=== PATIENT | male | born 1970 | race Caucasian/White ===

== ENCOUNTER 2023-04-26 02:28 | Inpatient (IN) | payer MEDICAID, SELFPAY ==
[2023-04-26] VITALS (45 sets, daily range): BP systolic 113–148; BP diastolic 86–109; PULSE 60–87; RESP 9–25; TEMP 36.6–37.6; O2SAT 90–100; BMI 28.2
--- NOTE | 2023-04-26 02:29 | XRR_ITS ---
PROCEDURE INFORMATION: Exam: XR Chest Exam date and time: 04/26/2023 2:34 AM Age: 53 years old Clinical indication: Pain and abnormal findings; Abnormal ekg; Chest pressure; Patient HX: C/O chest pain. St elevation on ekg. ; Additional info: Cp TECHNIQUE: Imaging protocol: Radiologic exam of the chest. Views: 1 view. COMPARISON: No relevant prior studies available. FINDINGS: Tubes, catheters and devices: Left chest defibrillator pads. Lungs: Krys-ef-upxzwacy diffuse interstitial hazy opacity. Pleural spaces: Unremarkable. No pleural effusion. No pneumothorax. Heart/Mediastinum: Heart is mildly enlarged. Advanced diffuse vascular calcification noted. Bones/joints: Unremarkable. XR/XR chest 1V portable [id number] IMPRESSION: Large heart with diffuse areas of interstitial edema, scarring, or pneumonitis.
--- NOTE | 2023-04-26 02:29 | ECG_ITS ---
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 Measurements Intervals [place] Rate: 80 P: 7 PA: 153 QRS: -28 QRSD: 99 T: 52 QT: 377 QTc: 437 Interpretive Statements SINUS RHYTHM WITH FREQUENT VENTRICULAR PREMATURE COMPLEXES LOW QRS VOLTAGE [QRS DEFLECTION < 0.5/1.0 mV IN LIMB/CHEST LEADS] ANTEROSEPTAL MYOCARDIAL INFARCTION , POSSIBLY ACUTE [40+ ms Q WAVE IN V1-V4] MARKED ST ELEVATION, CONSIDER LATERAL INJURY [MARKED ST ELEVATION W/O NORMALLY INFLECTED T-WAVE IN I/aVL/V5/V6] ST ELEVATION, CONSIDER INFERIOR INJURY [MARKED ST ELEVATION W/O NORMALLY INFLECTED T-WAVE IN II/aVF] ACUTE TN No previous ECG available for comparison Electronically Signed On 04-26-2023 22:31:07 CDT by Omar Bridges M.D. [id number]
--- NOTE | 2023-04-26 02:39 | XACV_ITS ---
Exam Room: 2 Ht: 188 cm Wt: 100 kg BSA: 2.30 m2 Gender: Male : 1970 Any Known Allergies: No known allergies Exam Priority: Routine Procedure(s): Procedure Description: Diagnostic procedure Procedure Description: PCI procedure Procedure Description: Left Heart Catheterization Procedure Description: Left ventriculography Procedure Description: Drug Eluting Coronary Stent Procedure Description: PTCA Procedure Description: Miscellaneous Procedure Description: ACT Procedure Description: Coronary Angiography Diagnostic Cath Status: Emergency Diagnostic Findings * Timeout performed using 2 patient identifiers. Moderate conscious sedation administered with one-on-one nursing monitoring of patient's conscious respiratory hemodynamic state including use of CO2 capnography. * Right radial access obtained with 6 Tunisian introducer without issue. * TIG 4 diagnostic catheter utilized. LV angiography revealed anteroapical and inferoapical severe hypokinesis. Basal segments were hypercontractile. Ejection fraction visually estimated at 35%. * Left main with 10 to 20% plaquing. * LAD in the mid segment was 100% occluded. Diagonal branch #1 is large with 10 to 20% plaquing. * Circumflex in the mid segment had 30 to 40% disease. Obtuse marginal branch #1 is large and had proximal 60% disease. * Right coronary artery in the midsegment had 50% disease. Distally there was 70% disease. Right coronary artery was codominant with a wraparound apical LAD. R JEANNE system was robust. PCI Status: Emergency Interventional Findings * LAD was wired without difficulty. CEM I flow was restored after dottoring with a 2.0 diameter balloon. Intracoronary adenosine was administered. Balloon angioplasty performed with a 2.0 x 15 mm balloon restoring CEM-3 flow. Mid LAD had 40 to 50% disease. Proximal LAD was stented using a 3.5 x 18 mm drug-eluting stent. There was less than 10% residual stenosis in the stented segment and 40 to 50% just distal to the stented segment. CEM-3 flow was present at the end of the procedure. Conclusions 1. Ejection fraction 35% with anteroapical and inferoapical severe hypokinesis. 2. Left main 10 to 20%. 3. Proximal LAD 100%. Successful intervention using a 3.5 x 18 mm drug-eluting stent. Mid LAD with 40 to 50%. 4. Circumflex marginal branch #1 with proximal 60%. 5. Right coronary artery mid 40 to 50% and distal 70%. Right coronary is a codominant system and gives rise to a large JEANNE. Recommendations * Aspirin, clopidogrel, carvedilol, Entresto, atorvastatin, as needed sublingual nitroglycerin. 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 Patient will be monitored for post AR complications in-house for 2 midnights. Ventriculography Ejection Fraction: 35.0 % Pressures Phase:Rest AO : 135 / 83 ( 115 ) @ 11:13:12 PM 119 / 77 ( 102 ) @ 11:13:12 PM 137 / 90 ( 114 ) @ 11:13:12 PM 146 / 95 ( 118 ) @ 11:13:12 PM LV : 141 / 18 / 30 @ 11:13:12 PM 158 / 11 / 44 @ 11:13:12 PM Clinical Evaluation EBL: 5mL-10mL Procedural Details Pre-Procedure Time Out. Identified patient by full name and date of as verbalized by the patient/guarantor. Does the consent match the physician's order: N/A Emergent; Informed Consent not obtained due to time critical life threat. Accurate & Complete Informed Consent: N/A Emergent; Informed Consent not obtained due to time critical life threat. Inpatient/Outpatient History & Physical on Chart: N/A Emergent; Informed Consent not obtained due to time critical life threat. If H&P is completed, is and addenduem needed: N/A Emergent; Informed Consent not obtained due to time critical life threat; If yes, is the addendum complete: N/A. Visualize and Verify Site with Patient/Guarantor: N/A. Relevant Radiology Images available: No. The risks, benefits, and alternatives of sedation and/or procedure were discussed by physician. The patient agrees to continue. Procedure started. Information Technology Project Manager Indications: ACS <= 24 hours. Correct patient, site and procedure confirmed by cath team. Current diagnosis: STEMI. PERRLA. Strong, equal hand fermenter champagne bilaterally. Lungs clear x 5 lobes. IV Site on Arrival: 18 gauge in the left hand. IV Site on Arrival: 20 gauge in the left anticubital. IV Fluids: 0.9% NaCl at KVO. 500 mL infused prior to veterinarian laboratory animal care. Pre Procedural Pulses: right radial was 2+. Pre Procedural Pulses: bilateral dorsalis pedis was 2+. Oxygen started at 3liters/min via nasal canula. right radial was prepped with chloroprep then draped in the usual sterile fashion. right groin was prepped with chloroprep then draped in the usual sterile fashion. Physician notified. Baseline sample Acquired. HR: 46 BPM. Cardiovascular Instability: Yes, if yes, Ventricular Arrhythmias. Baseline sample Acquired. HR: 69 BPM. Physician arrived. Physician scrubbed in. Immediate Pre-Procedure Time Out. Correct Patient: Yes; Correct Procedure: Yes; Correct Site: Yes; Correct Patient Position: Yes; Correct Supplies: Yes; Dried Flammable Prep: Yes; Blood Products Available: No;. Lidocaine 1% infiltrated to the right radial. Arterial access obtained. Wire out. EDP Sample taken: LV 141/18,30; HR: 100 BPM; SpO2: 99%. LV gram performed in NEUMANN @ 10 mL/second for a total of 30 mL. EDP Sample taken: LV 158/11,44; HR: 91 BPM; SpO2: 96%. Pullback taken: LV Off; AO Off; Mean: , Peak to Peak: , SEP: ; HR: 74 BPM; SpO2: 93%. A 5 [place] citizen TIG catheter in over wire. Multiple views taken of left coronary artery. Catheter redirected to the RCA. Multiple views taken of right coronary artery. Admit Source: Emergency department. Catheter removed over the exchange wire. 6 [place] citizen XB 3.5 guide catheter was inserted over the wire. Runthrough guidewire was advanced through the guide catheter to lesion in the prox LAD. Guidewire advanced across lesion. Balloon inserted to lesion in the prox LAD. Inflation number : 1 A AB MINI TREK 2.00X20 RX BALLOON was prepped and advanced across the Prox LAD , then inflated to 9 KELLEN for 0:18 seconds. Inflation number: 2 The AB MINI TREK 2.00X20 RX BALLOON was reinflated across the Prox LAD, to 9 KELLEN for 0:11 seconds. Balloon out. Stent balloon out over wire. Inflation Number : 3 A GABRIELLE Noble BARRY 3.5X22 SEGUNDO -Lot Number#[id number] EXP 12-26-2023 was prepped and advanced across the Prox LAD. The stent was deployed at 13 KELLEN for 0:34 seconds. Inflation number: 4 The stent balloon was then re-inflated across the Prox LAD to 13 KELLEN for 0:31 seconds. Angiography performed, checking results. Stent balloon and wire out. Guide catheter out over exchange wire. A 5 [place] citizen JR4 catheter in over wire. Multiple views taken of right coronary artery. Catheter removed over the exchange wire. ACT drawn. Results 215 seconds. Therapeutic limits - pre-heparin administration 90-150 seconds and monitoring heparin during a vascular procedure >250 seconds. Physician scrubbed out. Patient's family updated. Post Procedure: Pulses reassessed and unchanged. PERRLA. Strong, equal hand fermenter champagne bilaterally. No VTE prophylaxis required. Medication's Wasted: Lidocaine 1% = 2 mL. Medication's Wasted: Nitro = 49.6 mg. Medication's Wasted: Other = Fentanyl 75mcg mL. Medication's Wasted: Heparin = 4000 unit. Total IV fluids: 55 mL. Post-op diagnosis: Anterior AR. Complications: None. Estimated blood loss: 5mL-10mL. Responsiveness - Normal response to verbal stimuli; alert and oriented, PERRLA. Airway - Unaffected, no intervention required; spontaneous ventilation. Circulation: W/N/L, pulses unchanged. Nausea/Vomiting: No. Procedure completed. Patient transferred by wheelchair to ICU. Vital chart was stopped. A TR Band was successful obtaining hemostatsis at the Right Radial artery insertion site. Access Site Site: Right Radial artery Sheath Size: 6 Fr Hemostasis Method: TR Band Hemostasis Success: Successful Procedure Medications Start: 3:21 AM Stop: 3:21 AM Medication: Versed Amount: 1 mg Route: I.V. Start: 3:21 AM Stop: 3:21 AM Medication: Fentanyl Amount: 25 mcg Route: I.V. Start: 3:23 AM Stop: 3:23 AM Medication: Verapamil Amount: 2.5 mg Route: I.A. Start: 3:23 AM Stop: 3:23 AM Medication: Heparin Amount: 2000 units Route: I.A. Start: 3:23 AM Stop: 3:23 AM Medication: Nitrogylcerin Amount: 400 mcg Route: I.A. Start: 3:42 AM Stop: 3:42 AM Medication: Adenosine (Adenocard) Amount: 140 mcg Route: I.C. Start: 3:47 AM Stop: 3:47 AM Medication: Lasix (furosemide) Amount: 20 mg Route: I.V. Start: 3:48 AM Stop: 3:48 AM Medication: Versed Amount: 1 mg Route: I.V. I, the attending physician, have reviewed and verified all procedure medications. Yes, all medications given per verbal order Report Signatures Finalized by Sanjay Chinchilla MD on 04/26/2023 04:49 AM
--- NOTE | 2023-04-26 02:40 | ED_ITS ---
HPI - Chest Pain General: Chief Complaint: Chest Pain Stated Complaint: Chest Pains\SOB Time Seen by Provider: 04/26/23 02:29 Source: patient Mode of arrival: ambulatory Limitations: no limitations History of Present Illness: 53-year-old male states he has been having chest pain over the last 2 hours s tates the pain is a pressure type pain in the center of his chest and is severe he has had some diaphoresis and nausea with it as well. No history of heart disease in the past. He denies any worsening improving factors. Associated symptoms: Reports dyspnea; Deny abdominal pain, fever(s), nausea or vomiting Review of Systems Const: Denies: fever(s), chills, body aches or change in appetite Eyes: Denies: blurry vision or eye discomfort ENMT: Denies: throat pain or dental pain Card: Reports: chest pain Resp: Reports: dyspnea GI: Denies: abdominal pain, nausea, vomiting or diarrhea Musc: Denies: neck pain or back pain Skin/Breast: Denies: rash Neuro: Denies: headache(s) Physical Exam Const: COMMON NORMALS: patient oriented x3 GENERAL APPEARANCE: in distress HENMT: COMMON NORMALS: normocephalic and atraumatic HEAD & SCALP: normoceph alic and atraumatic Neck/C-Spine: COMMON NORMALS: full ROM and supple Chest: COMMONS NORMALS: normal inspection of the chest and normal palpation of entire chest wall Resp: COMMON NORMALS: normal respiratory effort, No retractions, No use of accessory muscles and clear to auscultation bilaterally AUSCULTATION: clear to auscultation bilaterally Cardio: COMMON NORMALS: regular rate, regular rhythm and No murmurs present (Cardio) RATE: regular rate RHYTHM: regular rhythm GI: COMMON NORMALS: Normal to inspection, nondistended, normoactive bowel so unds present, Soft to palpation, non-tender and no masses PALPATION: Yes Soft to palpation Extremity: COMMON NORMALS: normal to inspection and full ROM Neuro: COMMON NORMALS: patient oriented x3, moves all extremities and no focal motor deficits Psych: COMMON NORMALS: mental status grossly normal, Normal thought process present and cooperative THOUGHT PROCESS: Normal thought process present Skin: COMMON NORMALS: no rashes or lesions noted and no wounds GENERAL SKIN EXAM: no rashes or lesions noted Course Vital Signs: Vital signs: Vital Signs Temperature 98.2 F 04/26/23 02:33 Pulse Rate 74 04/26/23 03:01 Respiratory Rate 16 04/26/23 03:01 Blood Pressure 133/94 04/26/23 03:01 Pulse Oximetry 95 04/26/23 03:01 Oxygen Delivery Me thod Room Air 04/26/23 02:33 MDM - Chest Pain Medical Decision Making Patient presents here with chest pain EKG does show an ST elevation NC. I have spoken to health outcomes liaison will give heparin Plavix patient is going to go to the [facility] Medical Records I reviewed the patient's medical records. Lab Data I reviewed the patient's lab results. 04/26/23 02:45 04/26/23 02:45 Laboratory Results WBC 15.45 10^3/uL (3.29-11.43) H 04/26/23 02:45 RBC 4.94 10^6/uL (3.85-5.65) 04/26/23 02:45 Hgb 15.10 g/dL (11.27-16.99) 04/26/23 02:45 Hct 45.2 % (37-53) 04/26/23 02:45 MCV 91.5 fl (82-101) 04/26/23 02:45 MCH 30.6 pg (27-33) 04/26/23 02:45 MCHC 33.4 g/dL (30-55) 04/26/23 02:45 RDW 13.0 % (12.1-15.1) 04/26/23 02:45 Plt Count 266 10^3/cmm (157-399) 04/26/23 02:45 MPV 10.4 fL (7.4-10.4) 04/26/23 02:45 Neut % (Auto) 74.1 % 04/26/23 02:45 Lymph % (Auto) 17.7 % 04/26/23 02:45 [place] % (Auto) 6.0 % 04/26/23 02:45 Eos % (Auto) 1.4 % 04/26/23 02:45 Baso % (Auto) 0.3 % 04/26/23 02:45 Neut # (Auto) 11.44 10^3/uL (1.8-7.7) H 04/26/23 02:45 Lymph # (Auto) 2.7 10^3/uL (0.8-4.8) 04/26/23 02:45 [place] # (Auto) 0.9 10^3/uL (0.2-0.9) 04/26/23 02:45 Eos # (Auto) 0.2 10^3/uL (0.0-0.8) 04/26/23 02:45 Baso # (Auto) 0.1 10^3/uL (0.0-0.1) 04/26/23 02:45 Nucleated RBC % (auto) 0 % 04/26/23 02:45 Nucleated RBCs # 0.0 /100WBC 04/26/23 02:45 PT 11.70 SECONDS (12.1-14.9) L 04/26/23 02:45 INR 0.84 (0.8-1.2) 04/26/23 02:45 Troponin T Baseline 86 ng/L (0-15) H 04/26/23 02:45 EKG Data EKG 1: I personally reviewed and interpreted this EKG as follows: EKG interpretation date: 04/26/23 EKG interpretation time: 02:36 Interpretation: nsr hr 80 st elevation in inferior leads STEMI Critical Care Time Critical Care Time: Critical Care Time: Yes Total Critical Care Time: 35 Attestation: The high probability of a clinically significant, sudden or life threatening deterioration of the patient's cv system(s) required my full and direct attention, intervention and personal management. The critical care time is as shown. This time is in addition to time spent performing any reported procedures but includes the following: [x] Data and vital sign review and interpretation [x] Patient assessment, examination and intervention [x] Documentation [x] Medication orders and management Discharge Plan Discharge Patient Disposition: Admitted As Inpatient Clinical Impression: ST elevation (STEMI) myocardial infarction Condition: Stable Coding Level of Care Code ED Command Center Analyst for Patsy Guevara
[2023-04-26] MEDS: heparin 5,000 unit/mL INJ 1 mL 4000 UNIT IVP (02:42)
[2023-04-26] MEDS: clopidogrel 300 mg Tablet 600 MG PO (02:42)
[2023-04-26] MEDS: aspirin 325 mg Tablet PO (02:42)
[2023-04-26] MEDS: morphine 4 mg/mL SDV 1 mL IVP ×3 (02:45→12:57)
[2023-04-26] MEDS: nitroglycerin 0.4 mg sublingual Tablet SUBLINGUAL (02:47)
[2023-04-26] MEDS: sodium chloride 0.9% 1,000 ML 999 ML IV (02:48)
[2023-04-26] MEDS: ondansetron 2 mg/ML SDV 2 mL 4 MG IVP (02:51)
[2023-04-26 02:54] LABS: Basophils # 0.1 10^3/uL (0.0-0.1); Basophils % 0.3 %; Eosinophils # 0.2 10^3/uL (0.0-0.8); Eosinophils % 1.4 %; Hematocrit 45.2 % (37-53); Lymphocytes # 2.7 10^3/uL (0.8-4.8); Lymphocytes % 17.7 %; Mean Corpuscular HGB Conc 33.4 g/dL (30-55); Mean Corpuscular Hemoglobin 30.6 pg (27-33); Mean Corpuscular Volume 91.5 fl (82-101); Mean Platelet Volume 10.4 fL (7.4-10.4); Monocytes # 0.9 10^3/uL (0.2-0.9); Neutrophils # 11.44 10^3/uL (1.8-7.7); Neutrophils % 74.1 %; Nucleated Red Blood Cells % 0 %; Platelet Count 266 10^3/cmm (157-399); Red Blood Count 4.94 10^6/uL (3.85-5.65); White Blood Count 15.45 10^3/uL (3.29-11.43)
[2023-04-26 03:06] LABS: INR 0.84 (0.8-1.2)
[2023-04-26 03:10] LABS: Troponin(5th) Baseline 86 ng/L (0-15)
[2023-04-26 03:13] LABS: Alanine Aminotransferase 17 U/L (0-41); Albumin Level 4.6 g/dL (3.5-5.2); Alkaline Phosphatase 88 U/L (40-130); Anion Gap 15.1 (5-19); Aspartate Amino Transferase 15 U/L (0-40); Blood Urea Nitrogen 12 mg/dL (6-20); Calcium 9.7 mg/dL (8.5-10.5); Carbon Dioxide 28 mmol/L (22-29); Chloride 101 mmol/L (98-107); Globulin 2.6 g/dL (1.3-4.6); Glomerular Filtration Rate 88.3 mL/min (90-130); Glucose 198 mg/dL (65-115); Lipase 23 U/L (13-60); Osmolality Calculated 295 mOsm/kg (285-295); Potassium 4.1 mmol/L (3.5-5.1); Sodium 140 mmol/L (136-145); Total Bilirubin 0.2 mg/dL (0.15-1.2); Total Protein 7.2 g/dL (6.6-8.7)
--- NOTE | 2023-04-26 03:13 | PC.NURSE ---
Pt brought to ED via personal vehicle with SO and daughter. Pt stated that chest pain began around 0000 as SOB and pressure. Pt was asleep on the couch at this time and woke up to these s/s and tried to go to bed. Daughter arrived home at 0100 and pt stated that chest pain was worsening. Pain is in the substernal region and feels like pressure. Pt was diaphoretic per family as well. No cardiac hx. Upon arrival to ED, EKG obtained at [address] elevation. in room at time of EKG. STEMI alert called at this time. Monitoring and pads placed on pt. IVs then established prior to medications given. Exact times of these recorded on mechanical shop laborer flowsheet. Medications then given at documented times in OCT. Pt dressed out into only gown with groin and wrist sites shaved with razor. Pt pain under control at time of departure to mechanical shop laborer at 0310. Pain was a 4/10 per pt. Report given to mechanical shop laborer RN. Cook Pressure not present before departure to mechanical shop laborer.
--- NOTE | 2023-04-26 04:02 | P.HP_ITS ---
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 2 hours prior to presentation to the ER he developed severe chest discomfort, diaphoresis, and shortness of breath. EKG was consistent with an acute PA. Review of Systems Narrative: 10 point review of systems performed. Negative for all other complaints except for those noted in history of present illness Medications/Allergies Home Medications Medication Instructions Recorded Confirmed Last Taken Type No Known Home Medications 09/08/22 Unknown History Allergies Allergy/AdvReac Type Severity Reaction Status Date / Time No Known Allergies Allergy Verified 04/26/23 02:43 Vitals/I&O/Wt Last Vital Signs Temp 98.2 F 04/26/23 02:33 Pulse 73 04/26/23 03:05 Resp 18 04/26/23 03:05 BP 132/105 04/26/23 03:05 Pulse Ox 94 04/26/23 03:05 O2 Del Method Room Air 04/26/23 03:05 Weight last 48 hrs Weight 220 lb Physical Exam Const: COMMON NORMALS: average body habitus HENMT: COMMON NORMALS: normocephalic Eye: PUPIL: Yes Equal, round and reactive pupils present Neck/C-Spine: CERVICAL SPINE: Yes cervical ROM normal Chest: OTHER: Anterior exam only no audible rales rhonchi or wheezes Resp: AUSCULTATION: clear to auscultation bilaterally Cardio: HEART SOUNDS: S1 normal heart sound present and S2 normal heart sound present OTHER: Ectopy audible GI: PALPATION: Yes Soft to palpation Back/Pelvis: LUMBAR SPINE/LOWER BACK: Yes normal to inspection Extremity: GENERAL: Yes normal exam except as noted Psych: ATTITUDE: Yes agitated Skin: OTHER: Diaphoresis Data 04/26/23 02:45 04/26/23 02:45 A&P Assessment and plan (1) ST elevation (STEMI) myocardial infarction: (2) Cigarette nicotine dependence: (3) Hyperlipidemia: (4) Hypertension: Plan Patient is agreeable with recommendation to proceed directly with diagnostic cardiac cath and possible percutaneous revascularization. He and his family except the periprocedural 1 to 3% risk of bleeding infection stroke heart attack renal failure need for emergent surgery and . Based on results further recommendations will be made. Attestations Medical Necessity Statement*: Patient is presenting with an anterolateral myocardial infarction, acute, anticipate greater than 2 midnight stay. Coding Level of Care Code [address] elevation (STEMI) myocardial infarction I21.3 Cigarette nicotine dependence F17.210 Hyperlipidemia E78.5 Hypertension I10
[2023-04-26] MEDS: sodium chloride 0.9% 1,000 ML 100 ML IV (05:00)
[2023-04-26 05:57] LABS: Troponin 5 2HR 5826 ng/L (0-15)
[2023-04-26 05:58] LABS: Troponin 5 2HR Delta 5740 ABS# (0-10)
--- NOTE | 2023-04-26 06:19 | PC.NURSE ---
0415 -- Received patient from laboratory technical specialist via stretcher. Patient remains drowsy. V/S stable. CM = SR with frequent PVCs and runs of v-tach. No reports of chest pain or discomfort. TR band to right wrist in place with 18ml air in place.
--- NOTE | 2023-04-26 06:44 | PC.NURSE ---
0515 -- 3mL air removed from right radial TR band 0530 -- 3mL air removed from right radial TR band 0545-- 3mL air removed from right radial TR band 0600 -- 3mL air removed from right radial TR band 0615 -- 3mL air removed from right radial TR band 0630 -- 3mL air removed from right radial TR band. NO bleeding or hematoma noted. TR band removed, bandaid placed.
--- NOTE | 2023-04-26 06:48 | PC.NURSE ---
Small hematoma noted above insertion site to right wrist. Replaced TR band, inflated with 10mL air.
--- NOTE | 2023-04-26 08:29 | ECG_ITS ---
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 Measurements Intervals [place] Rate: 70 P: -9 WV: 139 QRS: -66 QRSD: 95 T: 42 QT: 409 QTc: 442 Interpretive Statements SINUS RHYTHM WITH OCCASIONAL VENTRICULAR PREMATURE COMPLEXES LEFT AXIS DEVIATION [QRS AXIS < -30] LOW QRS VOLTAGE [QRS DEFLECTION < 0.5/1.0 mV IN LIMB/CHEST LEADS] ANTEROSEPTAL MYOCARDIAL INFARCTION , OF INDETERMINATE AGE [40+ ms Q WAVE IN V1-V4] Compared to ECG 04/26/2023 02:36:31 Left-axis deviation now present ST (T wave) deviation no longer present Myocardial infarct finding still present Electronically Signed On 04-26-2023 22:33:24 CDT by Omar Bridges M.D. [id number]
[2023-04-26 09:12] LABS: Troponin 5 6HR 6943 ng/L (0-15)
[2023-04-26 09:13] LABS: Troponin 5 6HR Delta 6857 ng/L (0-12)
[2023-04-26] MEDS: aspirin 81 mg EC Tablet PO (09:41)
[2023-04-26] MEDS: carvedilol 3.125 mg Tablet PO ×2 (09:41→17:26)
[2023-04-26] MEDS: sacubitril/valsartan 24-26 mg Tablet 1 EACH PO ×2 (09:41→17:26)
[2023-04-26] MEDS: clopidogrel 75 mg Tablet PO (09:41)
--- NOTE | 2023-04-26 16:17 | P.PN_ITS ---
Subjective Subjective: Patient has no past medical history and underwent coronary intervention for management of an acute anterior myocardial infarction with a proximal to mid LAD 100% occlusion and placement of a 3.5 x 18 mm drug-eluting stent. There was samaritan of CEM-3 flow and the patient's symptoms instantaneously resolve he is sleeping and resting comfortably in the ICU in bed. Family is at the bedside his daughter is a nurse in the emergency room. Vitals/I&O/Wt Last Vital Signs Temp 98.2 F 04/26/23 04:38 Pulse 70 04/26/23 14:00 Resp 13 04/26/23 14:00 BP 136/102 04/26/23 14:00 Pulse Ox 97 04/26/23 13:30 O2 Del Method Nasal Cannula 04/26/23 06:00 04/26/23 04/26/23 04/26/23 06:59 14:59 22:59 Intake Total 200 / 200 Output Total 1200 / 1200 Balance -1000 / -1000 Weight last 48 hrs Weight 220 lb Physical Exam Const: COMMON NORMALS: average body habitus HENMT: COMMON NORMALS: normocephalic HEAD & SCALP: normocephalic Eye: COMMON NORMALS: Equal, round and reactive pupils present PUPIL: Yes E qual, round and reactive pupils present Neck/C-Spine: CERVICAL SPINE: Yes cervical ROM normal Chest: OTHER: Anterior exam only no audible rales rhonchi or wheezes Resp: COMMON NORMALS: clear to auscultation bilaterally AUSCULTATION: clear to auscultation bilaterally Cardio: COMMON NORMALS: S1 normal heart sound present and S2 normal heart sound present HEART SOUNDS: S1 normal heart sound present and S2 normal heart sound present OTHER: Ectopy audible GI: COMMON NORMALS: Soft to palpation PALPATION: Yes Soft to palpation Back/Pelvis: LUMBAR SPINE/LOWER BACK: Yes normal to inspection Extremity: GENERAL: Yes normal exam except as noted Psych: ATTITUDE: Yes agitated Skin: OTHER: Diaphoresis Data 04/26/23 02:45 04/26/23 02:45 A&P Assessment and plan (1) ST elevation (STEMI) myocardial infarction: (2) Cigarette nicotine dependence: (3) Hyperlipidemia: (4) Hypertension: (5) Ventricular tachycardia (paroxysmal): Patient continues to suffer from nonsustained ventricular tachycardia post revascularization for an acute anterior myocardial infarction. He remains high risk and will stay in the hospital overnight. I have discussed with him considerations for ZOLL LifeVest for risk reduction over the next 90 days and he and his family are thinking about things. Attestations Medical Necessity Statement*: Patient suffered an anterior myocardial infarction with LV systolic dysfunction and ventricular arrhythmias after revascularization. He is still undecided on a ZOLL LifeVest. He will remain in the intensive care unit overnight and he is expected to stay 2 midnights prior to discharge. Coding Level of Care Code [address] elevation (STEMI) myocardial infarction I21.3 Cigarette nicotine dependence F17.210 Hyperlipidemia E78.5 Hypertension I10 Ventricular tachycardia (paroxysmal) I47.29
[2023-04-26] MEDS: atorvastatin 40 mg Tablet 80 MG PO (20:29)
[2023-04-27] VITALS (22 sets, daily range): BP systolic 95–140; BP diastolic 70–104; PULSE 76–87; RESP 12–33; TEMP 37.1–37.2; O2SAT 90–98
[2023-04-27 04:17] LABS: Basophils % 0.3 %; Eosinophils % 0.3 %; Hematocrit 40.3 % (37-53); Lymphocytes # 2.8 10^3/uL (0.8-4.8); Lymphocytes % 20.7 %; Mean Corpuscular Hemoglobin 30.8 pg (27-33); Mean Corpuscular Volume 90.6 fl (82-101); Monocytes # 1.1 10^3/uL (0.2-0.9); Monocytes % 8.3 %; Neutrophils # 9.57 10^3/uL (1.8-7.7); Nucleated Red Blood Cells % 0 %; Platelet Count 216 10^3/cmm (157-399); Red Blood Count 4.45 10^6/uL (3.85-5.65); Red Cell Distribution Width 13.2 % (12.1-15.1); White Blood Count 13.66 10^3/uL (3.29-11.43)
[2023-04-27 04:36] LABS: Anion Gap 11.4 (5-19); Blood Urea Nitrogen 9 mg/dL (6-20); Calcium 8.9 mg/dL (8.5-10.5); Carbon Dioxide 27 mmol/L (22-29); Chloride 99 mmol/L (98-107); Glucose 148 mg/dL (65-115); Osmolality Calculated 277 mOsm/kg (285-295); Potassium 4.4 mmol/L (3.5-5.1); Sodium 133 mmol/L (136-145)
[2023-04-27 04:46] LABS: Troponin T (5th) Once 4535 ng/L (0-15)
[2023-04-27] MEDS: aspirin 81 mg EC Tablet PO (08:12)
[2023-04-27] MEDS: clopidogrel 75 mg Tablet PO (08:12)
[2023-04-27] MEDS: carvedilol 3.125 mg Tablet PO (08:12)
[2023-04-27] MEDS: sacubitril/valsartan 24-26 mg Tablet 1 EACH PO ×2 (08:12→17:03)
--- NOTE | 2023-04-27 09:14 | P.PN_ITS ---
Subjective Subjective: Patient is chest pain-free. Feels drowsy today. Blood pressure is controlled. Vitals/I&O/Wt Last Vital Signs Temp 98.8 F 04/27/23 04:00 Pulse 83 04/27/23 08:00 Resp 16 04/27/23 08:00 BP 131/104 04/27/23 08:00 Pulse Ox 94 04/27/23 08:00 O2 Del Method Room Air 04/27/23 06:00 04/26/23 04/27/23 04/27/23 22:59 06:59 14:59 Intake Total 200 / 200 Output Total 800 / 800 Balance 200 / 200 -800 / -600 Weight last 48 hrs Weight 222 lb 9.6 oz Weight 220 lb Physical Exam Narrative: GENERAL: Patient is alert, awake and oriented x3. [] NECK: No jugular vein distension. [] HEENT: No cyanosis. No icterus. No pallor. [] HEART: Regular S1 and S2. No murmur, rub or gallop. [] LUNGS: Diminished air entry bilaterally CENTRAL NERVOUS SYSTEM: Grossly nonfocal. [] EXTREMITIES: Lower extremities with no edema Data 04/27/23 03:40 04/27/23 03:40 A&P Assessment and plan (1) ST elevation (STEMI) myocardial infarction: (2) Ischemic cardiomyopathy: (3) Ventricular tachycardia (paroxysmal): (4) Hypertension: (5) Hyperlipidemia: (6) Cigarette nicotine dependence: Plan Patient had presented with ST elevation ID and underwent successful revascularization. His echo performed today shows severely reduced LV systolic function with EF of 30 to 35%. He also had ventricular tachycardia postprocedure that was nonsustained. We will proceed with ordering LifeVest. Continue dual antiplatelet therapy with aspirin and Plavix. We will uptitrate Coreg to 6.25 mg twice daily today. Continue ICU monitoring for today. Attestations Medical Necessity Statement*: Care expected to cross [address] elevation ID. Awaiting LifeVest Coding Level of Care Code Acute Code for [facility] Diagnoses ST elevation (STEMI) myocardial infarction I21.3 Ischemic cardiomyopathy I25.5 Ventricular tachycardia (paroxysmal) I47.29 Hypertension I10 Hyperlipidemia E78.5 Cigarette nicotine dependence F17.210
--- NOTE | 2023-04-27 11:03 | USCV_ITS ---
Yosef Mukesh Age: 53 Gender: M : 1970 Exam Date: 04/27/2023 12:33 Ordering Phys: Omar Bridges M.D ([email or web address]) Technologist: Braden Beaver Exam Location: [facility] [place] Indication: mi BP: 121 / 98 HR: Rhythm: Sinus Technical Quality: Adequate MEASUREMENTS (Male / Female) Normal Values 2D ECHO LV Diastolic Diameter PLAX 4.9 cm 4.2 - 5.9 / 3.9 - 5.3 cm IVS Diastolic Thickness 0.8 cm 0.6 - 1.0 / 0.6 - 0.9 cm LVPW Diastolic Thickness 1.1 cm 0.6 - 1.0 / 0.6 - 0.9 cm LVOT Diameter 2.1 cm LV Ejection Fraction MOD 2C 46.8 % LV Ejection Fraction 2C AL 47.0 % LA Diameter 3.3 cm M-MODE Aortic Annulus Diameter 3.6 cm LA Ao Ratio MM 1.0 MV E Point Septal Separation 1.1 cm DOPPLER AV Peak Velocity 93.0 cm/s LVOT Peak Velocity 93.0 cm/s AV Area Cont Eq vti 2.9 cm squared AV Area Cont Eq pk 3.4 cm squared MV Area PHT 4.0 cm squared Mitral E to A Ratio 0.7 MV E' Velocity 28.5 cm/s Mitral E to MV E' Ratio 14.3 Mitral E to LV E' Lateral Ratio 15.1 Mitral E to LV E' Septal Ratio 13.9 TR Peak Velocity 88.0 cm/s TR Peak Gradient 3.1 mmHg TV Peak E Velocity 66.0 cm/s Right Atrial Pressure 3.0 mmHg Pulmonary Artery Systolic Pressu 6.1 mmHg RV Acceleration Time 0.1 s FINDINGS Left Ventricle Left ventricle is normal size. LV systolic function is severely reduced with EF of 25 to 30%. Mid to apical anterior wall, apical wall, mid to apical inferoseptal lentz are severely hypokinetic. Grade 1 diastolic dysfunction Right Ventricle Normal in size and function Right Atrium Normal in size Left Atrium Normal in size Mitral Valve Grossly normal Aortic Valve Grossly normal. No significant stenosis or regurgitation. Tricuspid Valve Not well visualized Pulmonic Valve Not well visualized Pericardium Normal Aorta Normal in size IVC Not well visualized CONCLUSIONS LV systolic function is severely reduced with EF of 25 to 30%. Above-mentioned regional wall motion abnormalities. Grade 1 diastolic dysfunction No comparison studies are available. Omar Bridges MD (Electronically Signed) Final Date: 27 April 2023 17:31 S
[2023-04-27] MEDS: carvedilol 6.25 mg Tablet PO (17:03)
--- NOTE | 2023-04-27 18:53 | PC.NURSE ---
Shift summary: uneventful shift, patient decided to go with wearing a life vest, waiting on company at this time. no pain reported today, family been at bedside and updated.
[2023-04-27] MEDS: atorvastatin 40 mg Tablet 80 MG PO (20:54)
[2023-04-28] VITALS (15 sets, daily range): BP systolic 85–110; BP diastolic 64–84; PULSE 73–80; RESP 12–22; O2SAT 92–97
[2023-04-28] MEDS: aspirin 81 mg EC Tablet PO (08:01)
[2023-04-28] MEDS: clopidogrel 75 mg Tablet PO (08:01)
[2023-04-28] MEDS: carvedilol 6.25 mg Tablet PO (08:01)
[2023-04-28] MEDS: sacubitril/valsartan 24-26 mg Tablet 1 EACH PO (08:01)
[2023-04-28 09:23] LABS: Basophils # 0.1 10^3/uL (0.0-0.1); Basophils % 0.5 %; Eosinophils # 0.2 10^3/uL (0.0-0.8); Eosinophils % 1.3 %; Hematocrit 41.9 % (37-53); Lymphocytes # 2.8 10^3/uL (0.8-4.8); Lymphocytes % 21.2 %; Mean Corpuscular HGB Conc 34.1 g/dL (30-55); Mean Corpuscular Hemoglobin 30.7 pg (27-33); Mean Corpuscular Volume 89.9 fl (82-101); Mean Platelet Volume 10.3 fL (7.4-10.4); Monocytes # 1.3 10^3/uL (0.2-0.9); Monocytes % 9.9 %; Neutrophils # 8.68 10^3/uL (1.8-7.7); Neutrophils % 66.8 %; Nucleated Red Blood Cells % 0 %; Platelet Count 217 10^3/cmm (157-399); Red Blood Count 4.66 10^6/uL (3.85-5.65); Red Cell Distribution Width 13.1 % (12.1-15.1)
[2023-04-28 09:48] LABS: Anion Gap 12.2 (5-19); Blood Urea Nitrogen 12 mg/dL (6-20); Calcium 8.6 mg/dL (8.5-10.5); Carbon Dioxide 25 mmol/L (22-29); Chloride 102 mmol/L (98-107); Glucose 132 mg/dL (65-115); Osmolality Calculated 282 mOsm/kg (285-295); Potassium 4.2 mmol/L (3.5-5.1); Sodium 135 mmol/L (136-145)
--- NOTE | 2023-04-28 16:14 | PM.DCS ---
Discharge Providers Date of Admission: 04/26/23 04:36 Date of Discharge: April 28, 2023 Attending Provider at Admission: Sanjay Chinchilla MD Attending Provider at Discharge: Omar Bridges MD Diagnoses at Discharge Discharge Diagnosis (1) ST elevation (STEMI) myocardial infarction: Status: Inactive (2) Ischemic cardiomyopathy: Status: Acute (3) Ventricular tachycardia (paroxysmal): Status: Inactive (4) Hypertension: Status: Acute (5) Hyperlipidemia: Status: Acute (6) Cigarette nicotine dependence: Status: Inactive Reason for Visit Reason for Visit: Chest Pains\SOB Brief History: 53-year-old man who presented with chest pain, diaphoresis and shortness of breath was found to have ST elevation SC. Hospital Course Hospital Course Coronary angiogram demonstrated totally occluded proximally due to it underwent successful revascularization with 1 stent. Patient's LV systolic function is severely reduced. He had episodes of nonsustained VT. Tolerated medicines well. He was discharged home in a stable condition on dual antiplatelet therapy, Coreg and Entresto. LifeVest was also arranged for him.Patient has residual 70% distal RCA stenosis. We will perform outpatient stress test to see if needs revascularization. Physical Exam Narrative: GENERAL: Patient is alert, awake and oriented x3. [] NECK: No jugular vein distension. [] HEENT: No cyanosis. No icterus. No pallor. [] HEART: Regular S1 and S2. No murmur, rub or gallop. [] LUNGS: Diminished air entry bilaterally CENTRAL NERVOUS SYSTEM: Grossly nonfocal. [] EXTREMITIES: Lower extremities with no edema Discharge Data Studies Completed and Pending Completed Studies During Hospitalization Category Date Time Status RN TELEHEALTH request for service Stat Exams 04/26/23 02:39 Completed XR chest 1V portable [id number] Stat Exams 04/26/23 02:29 Completed CV. echo complete* [id number] Routine Ultrasound 04/27/23 11:03 Completed Radiology Impressions Chest X-Ray 04/26/23 02:29 IMPRESSION: Large heart with diffuse areas of interstitial edema, scarring, or pneumonitis. Laboratory Results WBC 13.00 10^3/uL (3.29-11.43) H 04/28/23 09:10 RBC 4.66 10^6/uL (3.85-5.65) 04/28/23 09:10 Hgb 14.30 g/dL (11.27-16.99) 04/28/23 09:10 Hct 41.9 % (37-53) 04/28/23 09:10 MCV 89.9 fl (82-101) 04/28/23 09:10 MCH 30.7 pg (27-33) 04/28/23 09:10 MCHC 34.1 g/dL (30-55) 04/28/23 09:10 RDW 13.1 % (12.1-15.1) 04/28/23 09:10 Plt Count 217 10^3/cmm (157-399) 04/28/23 09:10 MPV 10.3 fL (7.4-10.4) 04/28/23 09:10 Neut % (Auto) 66.8 % 04/28/23 09:10 Lymph % (Auto) 21.2 % 04/28/23 09:10 [place] % (Auto) 9.9 % 04/28/23 09:10 Eos % (Auto) 1.3 % 04/28/23 09:10 Baso % (Auto) 0.5 % 04/28/23 09:10 Neut # (Auto) 8.68 10^3/uL (1.8-7.7) H 04/28/23 09:10 Lymph # (Auto) 2.8 10^3/uL (0.8-4.8) 04/28/23 09:10 [place] # (Auto) 1.3 10^3/uL (0.2-0.9) H 04/28/23 09:10 Eos # (Auto) 0.2 10^3/uL (0.0-0.8) 04/28/23 09:10 Baso # (Auto) 0.1 10^3/uL (0.0-0.1) 04/28/23 09:10 Nucleated RBC % (auto) 0 % 04/28/23 09:10 Nucleated RBCs # 0.0 /100WBC 04/28/23 09:10 PT 11.70 SECONDS (12.1-14.9) L 04/26/23 02:45 INR 0.84 (0.8-1.2) 04/26/23 02:45 Sodium 135 mmol/L (136-145) L 04/28/23 09:10 Potassium 4.2 mmol/L (3.5-5.1) 04/28/23 09:10 Chloride 102 mmol/L (98-107) 04/28/23 09:10 Carbon Dioxide 25 mmol/L (22-29) 04/28/23 09:10 Anion Gap 12.2 (5-19) 04/28/23 09:10 BUN 12 mg/dL (6-20) 04/28/23 09:10 Creatinine 0.7 mg/dL (0.7-1.2) 04/28/23 09:10 GFR Calculation 118.0 mL/min (90-130) 04/28/23 09:10 Glucose 132 mg/dL (65-115) H 04/28/23 09:10 Calculated Osmolality 282 mOsm/kg (285-295) L 04/28/23 09:10 Calcium 8.6 mg/dL (8.5-10.5) 04/28/23 09:10 Total Bilirubin 0.2 mg/dL (0.15-1.2) 04/26/23 02:45 AST 15 U/L (0-40) 04/26/23 02:45 ALT 17 U/L (0-41) 04/26/23 02:45 Alkaline Phosphatase 88 U/L (40-130) 04/26/23 02:45 Troponin T Gen 5 ng/L 4535 ng/L (0-15) H* 04/27/23 03:40 Troponin T Baseline 86 ng/L (0-15) H 04/26/23 02:45 Troponin T 120 Minute 5826 ng/L (0-15) H 04/26/23 05:11 Delta Troponin T 5740 ABS# (0-10) H* 04/26/23 05:11 Troponin T Hi Sens 6Hr 6943 ng/L (0-15) H 04/26/23 08:32 Troponin T Hi Sens 6Hr Delta 6857 ng/L (0-12) H* 04/26/23 08:32 Total Protein 7.2 g/dL (6.6-8.7) 04/26/23 02:45 Albumin 4.6 g/dL (3.5-5.2) 04/26/23 02:45 Globulin 2.6 g/dL (1.3-4.6) 04/26/23 02:45 Lipase 23 U/L (13-60) 04/26/23 02:45 Vitals Last Vital Signs Temp 98.7 F 04/27/23 20:00 Pulse 79 04/28/23 14:00 Resp 18 04/28/23 14:00 BP 88/68 04/28/23 14:00 Pulse Ox 94 04/28/23 13:00 O2 Del Method Room Air 04/28/23 06:00 Discharge Plan Discharge Patient Disposition: Home Condition: Stable Prescriptions: New atorvastatin 40 mg Tablet 80 mg PO BEDTIME Qty: 90 3RF carvedilol 6.25 mg Tablet 6.25 mg PO BID Qty: 120 3RF clopidogrel 75 mg Tablet 75 mg PO DAILY Qty: 90 3RF aspirin 81 mg Tablet,Delayed Release (Dr/Ec) 81 mg PO DAILY Qty: 90 3RF Entresto 24-26 mg Tablet 1 ea PO BID Qty: 120 2RF nitroglycerin 0.4 mg Tablet, Sublingual 0.4 mg sublingual Q5M PRN (Reason: Chest Pain) Qty: 30 0RF No Action No Known Home Medications Discharge Orders: Discharge Order (Routine); Ordered 04/28/23 Ordered By: Omar Bridges Referrals: Luis Miguel Waller DO [Physician] - 4-7 days (someone will We have notified your physician's clinic of the need for a follow-up appointment to be scheduled. If you have not heard from them within the next 2 business days, please call them directly. You may also reach out to our interactive media project manager at [phone] and she can assist you. will see if follow up at [facility] walk in clinic Dr.Joe Waller or or other at clinic will follow up with you .) Omar Bridges M.D [Physician] - 1 month Radha Mendoza FNP [Nurse Practitioner] - 7-10 days (Radha Mendoza out of town for 2 weeks,so this appointment greater than 7-10 days. aoppointment date:Wednesday May 17, 2023 ,time of 1:15 pm after this appointment will schedule follow up from [facility]) Discharge Diet: Cardiac Discharge Activity: Increase activity as tolerated Patient Instructions: Aspirin (By mouth) (Bunny Extra Strength, Bunny Aspirin Children's,..., Nitroglycerin, Rapid Release (By mouth) (NitroMist, Nitrolingual,..., Atorvastatin (By mouth) (Lipitor, Atorvaliq), Carvedilol (By mouth) (Coreg, Coreg CR, Hypertenevide-12.5), Clopidogrel (By mouth) (Plavix), Sacubitril/Valsartan (By mouth) (Entresto), Heart Attack (DC), Heart Failure (DC), Coronary Angioplasty (DC), How to Stop Smoking (DC), Hypertension (DC), Hyperlipidemia (DC), CHF Stoplight, Opioid Safety, Post Angiogram Home Care Instructions, Post Heart Attack Stoplight Discharge Attestations Time Spent in Discharge Care*: greater than 30 min Quality Metrics Clinical Quality Measures [ Acute Myocardial Infaction { Clinical Trial Participant: No; Contraindication to aspirin: None; Aspirin prescribed; Contraindication to statin: None; Statin prescribed; Contraindication to PCI: None; PCI performed;}] Coding Level of Care Code Acute Code for [facility] Diagnoses ST elevation (STEMI) myocardial infarction I21.3 Ischemic cardiomyopathy I25.5 Ventricular tachycardia (paroxysmal) I47.29 Hypertension I10 Hyperlipidemia E78.5 Cigarette nicotine dependence F17.210
--- NOTE | 2023-04-28 17:23 | PC.NURSE ---
All D/C instructions educated to patient, transported home by
== END 2023-04-28 17:24 | disposition home or self-care (01) | DRG 247 ==
LOC: ER 02:44 → OR 03:12 → ICU 04:36
PROVIDERS: Internal Medicine; Admitting Provider Internal Medicine Cardiovascular Disease; Emergency Provider Emergency Medicine; Visit Provider Internal Medicine Cardiovascular Disease
PROC: 027034Z Dilation of Coronary Artery, One Artery with Drug-eluting Intraluminal Device, Percutaneous Approach (ICD-10-PCS; principal; 2023-04-26 03:00)
PROC: 027034Z Dilation of Coronary Artery, One Artery with Drug-eluting Intraluminal Device, Percutaneous Approach (ICD-10-PCS; 2023-04-26 03:00)
DX: I21.02 ST elevation (STEMI) myocardial infarction involving left anterior descending coronary artery (principal); I50.20 Unspecified systolic (congestive) heart failure; I47.20 Ventricular tachycardia, unspecified; I25.5 Ischemic cardiomyopathy; I11.0 Hypertensive heart disease with heart failure; E78.5 Hyperlipidemia, unspecified; F17.210 Nicotine dependence, cigarettes, uncomplicated
CPT/HCPCS: 36415; 71045; 80048; 80053; 83690; 84484; 85025; 85347; 85610; 93005; 93306; 93458; 96365; 96367; 96374; 96375; 96376; 99152; 99153; 99285; C1725; C1769; C1874; C1887; C1894; C9600; J0153; J1644; J1940; J2250; J2270; J2405; J3010; J3490; J7030; J7050; Q9967

== ENCOUNTER → 2023-05-17 13:53 | Outpatient (BNVA) | payer MEDICAID, SELFPAY | PROVIDERS: Visit Provider Nurse Practitioner Family | DX: I50.20 Unspecified systolic (congestive) heart failure (principal); I25.10 Atherosclerotic heart disease of native coronary artery without angina pectoris; I25.5 Ischemic cardiomyopathy; Z09 Encounter for follow-up examination after completed treatment for conditions other than malignant neoplasm | CPT/HCPCS: 36415; 80048 ==

== ENCOUNTER → 2023-05-26 10:19 | Outpatient (BNVA) | payer MEDICAID, SELFPAY | PROVIDERS: Visit Provider Internal Medicine Cardiovascular Disease | DX: I21.3 ST elevation (STEMI) myocardial infarction of unspecified site (principal) | CPT/HCPCS: 93005 ==

== ENCOUNTER → 2023-07-26 15:42 | Outpatient (BNVA) | payer BC, SELFPAY | PROVIDERS: Visit Provider Internal Medicine | DX: I25.10 Atherosclerotic heart disease of native coronary artery without angina pectoris (principal); I11.0 Hypertensive heart disease with heart failure; I50.20 Unspecified systolic (congestive) heart failure; I25.5 Ischemic cardiomyopathy; E78.5 Hyperlipidemia, unspecified; F17.210 Nicotine dependence, cigarettes, uncomplicated; I47.29 Other ventricular tachycardia | CPT/HCPCS: 99214 ==

== ENCOUNTER 2023-07-27 02:15 | Emergency (ER) | payer BC, MEDICAID, SELFPAY ==
[2023-07-27] VITALS (12 sets, daily range): BP systolic 112–143; BP diastolic 69–97; PULSE 77–83; RESP 16–18; TEMP 36.7; O2SAT 93–98; BMI 30.6
--- NOTE | 2023-07-27 02:25 | ECG_ITS ---
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 Measurements Intervals [place] Rate: 80 P: 45 UT: 163 QRS: -85 QRSD: 84 T: 87 QT: 338 QTc: 390 Interpretive Statements SINUS RHYTHM LEFT ATRIAL ENLARGEMENT [-0.15mV P-WAVE IN V1/V2] LOW QRS VOLTAGE IN EXTREMITY LEADS [QRS DEFLECTION < 0.5 mV IN LIMB LEADS] INFERIOR MYOCARDIAL INFARCTION , PROBABLY OLD [40+ ms Q WAVE AND/OR ST/T ABNORMALITY IN II/aVF] ANTEROSEPTAL MYOCARDIAL INFARCTION , OF INDETERMINATE AGE Compared to ECG 05/26/2023 10:22:37 Atrial abnormality now present Right-axis deviation no longer present T-wave abnormality no longer present Possible ischemia no longer present Myocardial infarct finding still present Electronically Signed On 07-27-2023 6:27:41 CITY COLLECTOR by Angela Jewell M.D. [id number]
--- NOTE | 2023-07-27 02:37 | ED_ITS ---
HPI - SOB/Dyspnea 2 General: Chief Complaint: Shortness of Breath/Dyspnea Stated Complaint: SOB Time Seen by Provider: 07/27/23 02:18 History of Present Illness: HPI Narrative: 53-year-old male presents emerged part w ith complaints of increased shortness of breath. He states that approximately 3 months ago he did have a myocardial infarction and did receive a cardiac stent. He states he was placed on a LifeVest and advised to take medications but he was unable to afford the medications. He states he saw his learning and development consultant today and restarted his anticoagulation and earlier this evening became short of breath and felt like he was having some significant wheezing. He states he did have some trace bilateral lower extremity edema. He states that his chest began to feel like he was having heavy pressure at the bottom of his chest he states he does have a coronary artery that is 70% blocked and was advised that his heart would have to be stronger before they went back in and placed another cardiac stent. Associated symptoms: Reports chest pain Review of Systems 2 General: Reports: 10 or more systems reviewed and unremarkable except in HPI and below Card: Reports: chest pain Resp: Reports: dyspnea and wheezing PFS ED 2 PFSH: Medical History (Updated 07/27/23 @ 05:49 by Pedro Dos Santos MD) Systolic CHF Coronary artery disease Ventricular tachycardia (paroxysmal) Cigarette nicotine dependence ST elevation (STEMI) myocardial infarction Physical Exam 2 Narrative: EXAM NARRATIVE: Constitutional: the patient appears well nourished and with normal development. Vital signs reviewed as documented. HENMT: Normocephalic, atraumatic. Extermal ears with normal appearance without drainage. Nose without drainage, normal appearance. Mucus membranes moist. Neck is supple, No jugular venous distension, trachea is midline, no appreciable carotid bruits. No lymphadenopathy. No meningeal signs. Flexion, extension and lateral rotation is without pain. Eyes: Pupils are equal, round, reactive to light and accommodation. No scleral icterus. Extra-ocular movement are intact. Thorax is symmetrical and with equal rise and fall with respirations. Resp: Lungs are clear to auscultation. No wheezes, rales, crackles or ronchi at present. Cardio: Regular rate and rhythm. Positive S1, S2. No appreciable murmurs, rubs or gallops. GI: Abdominal exam reveals normal bowel sounds to all quadrants. No organomegaly. No obvious palpable masses noted. No hepatomegally appreciated. Soft, nontender to palpation. Extremity: Extremities are non-edematous and both femoral and pedal pulses are 2+ and equal bilaterally. Moves all extremities well, sensation in all extremities. Neuro: Alert and oriented x4, person, place, time and situation. Cranial nerves II through XII are grossly intact, there is no focal neurological deficits that I can appreciate at present. Motor strength in the upper and lower extremities are equal and bilateral 5/5. Psych: Cooperative, calm, normal thought process, appropriate judgment. Skin: No lesions, rashes. No gross abnormalities noted. Back: Symmetrical, no obvious deformity, No CVA tenderness Course 2 Vital Signs: Vital signs: Vital Signs Temperature 98.0 F 07/27/23 02:18 Pulse Rate 82 07/27/23 04:21 Respiratory Rate 17 07/27/23 04:21 Blood Pressure 127/73 07/27/23 04:21 Pulse Oximetry 98 07/27/23 04:21 Oxygen Delivery Me thod Room Air 07/27/23 04:06 MDM - SOB/Dyspnea Medical Decision Making Physical exam completed I will get serial cardiac enzymes as well as EKG, chest x-ray CBC CMP I will provide the patient IV diuretics and have educated the patient extensively for approximately 45 minutes on the importance of medication compliance. Lab Data I reviewed the patient's lab results. 07/27/23 02:50 07/27/23 02:50 Labs/Radiology: Radiology Impressions Chest X-Ray 07/27/23 02:37 IMPRESSION: 1. Accentuation of the cardiac silhouette. 2. Patchy areas of interstitial thickening which may be on a chronic basis. 3. More focal retrocardiac left lower lung atelectasis versus area of pneumonitis. No dense consolidation. Laboratory Results WBC 9.71 10^3/uL (3.29-11.43) 07/27/23 02:50 RBC 3.87 10^6/uL (3.85-5.65) 07/27/23 02:50 Hgb 11.80 g/dL (11.27-16.99) 07/27/23 02:50 Hct 36.8 % (37-53) L 07/27/23 02:50 MCV 95.1 fl (82-101) 07/27/23 02:50 MCH 30.5 pg (27-33) 07/27/23 02:50 MCHC 32.1 g/dL (30-55) 07/27/23 02:50 RDW 14.0 % (12.1-15.1) 07/27/23 02:50 Plt Count 170 10^3/cmm (157-399) 07/27/23 02:50 MPV 10.5 fL (7.4-10.4) H 07/27/23 02:50 Neut % (Auto) 78.0 % 07/27/23 02:50 Lymph % (Auto) 11.1 % 07/27/23 02:50 [place] % (Auto) 7.2 % 07/27/23 02:50 Eos % (Auto) 2.9 % 07/27/23 02:50 Baso % (Auto) 0.4 % 07/27/23 02:50 Neut # (Auto) 7.57 10^3/uL (1.8-7.7) 07/27/23 02:50 Lymph # (Auto) 1.1 10^3/uL (0.8-4.8) 07/27/23 02:50 [place] # (Auto) 0.7 10^3/uL (0.2-0.9) 07/27/23 02:50 Eos # (Auto) 0.3 10^3/uL (0.0-0.8) 07/27/23 02:50 Baso # (Auto) 0.0 10^3/uL (0.0-0.1) 07/27/23 02:50 Nucleated RBC % (auto) 0 % 07/27/23 02:50 Nucleated RBCs # 0.0 /100WBC 07/27/23 02:50 PT 12.70 SECONDS (12.1-14.9) 07/27/23 02:50 INR 0.93 (0.8-1.2) 07/27/23 02:50 Sodium 139 mmol/L (136-145) 07/27/23 02:50 Potassium 4.5 mmol/L (3.5-5.1) 07/27/23 02:50 Chloride 104 mmol/L (98-107) 07/27/23 02:50 Carbon Dioxide 25 mmol/L (22-29) 07/27/23 02:50 Anion Gap 14.5 (5-19) 07/27/23 02:50 BUN 12 mg/dL (6-20) 07/27/23 02:50 Creatinine 0.8 mg/dL (0.7-1.2) 07/27/23 02:50 GFR Calculation 101.1 mL/min (90-130) 07/27/23 02:50 Glucose 112 mg/dL (65-115) 07/27/23 02:50 Calculated Osmolality 289 mOsm/kg (285-295) 07/27/23 02:50 Calcium 9.1 mg/dL (8.5-10.5) 07/27/23 02:50 Total Bilirubin 0.4 mg/dL (0.15-1.2) 07/27/23 02:50 AST 20 U/L (0-40) 07/27/23 02:50 ALT 34 U/L (0-41) 07/27/23 02:50 Alkaline Phosphatase 78 U/L (40-130) 07/27/23 02:50 Troponin T Baseline 17 ng/L (0-15) H 07/27/23 02:50 Troponin T 120 Minute 14.87 ng/L (0-15) 07/27/23 05:07 Delta Troponin T -2.13 ABS# (0-10) L 07/27/23 05:07 NT-Pro-B Natriuret Pep 1040 pg/mL (0-125) H 07/27/23 02:50 Total Protein 6.7 g/dL (6.6-8.7) 07/27/23 02:50 Albumin 4.2 g/dL (3.5-5.2) 07/27/23 02:50 Globulin 2.5 g/dL (1.3-4.6) 07/27/23 02:50 All radiology interpretation(s) finalized by discharge Discharge Plan Discharge Patient Disposition: Home Clinical Impression: Congestive heart failure (CHF), Acute dyspnea, Pneumonitis Condition: Stable Prescriptions: New azithromycin [Zithromax TRI-RICARDO] 500 mg tablet See Rx Instructions .ROUTE .COMPLEX Qty: 3 0RF Rx Instructions: For 500 mg dose pack: take 500 mg once daily for 3 days No Action aspirin 81 mg tablet,delayed release (DR/EC) 81 mg PO DAILY Qty: 90 3RF atorvastatin 40 mg tablet 40 mg PO DAILY Qty: 90 3RF clopidogrel [Plavix] 75 mg tablet 75 mg PO DIRECTED Qty: 90 3RF Rx Instructions: Take 300m (4 tabs) for first dose, then 75mg (1 tab) daily carvedilol [Coreg] 3.125 mg tablet 3.125 mg PO BID Qty: 180 3RF Rx Instructions: must administer with a meal/food Discharge Orders: Discharge ED (Routine); Ordered 07/27/23 Ordered By: Pedro Dos Santos Discharge Diet: Advance as tolerated Discharge Activity: Resume usual activity Patient Instructions: Opioid Safety, Pain Management Activity Restrictions/Additional Instructions: Activity Restrictions/Additional Instructions: Thank you for choosing [facility] for your healthcare needs today. Please realize that you were seen in the Emergency Department and that we are providing you with an emergency medical screening exam and this may not be complete and all inclusive of all the testing and or medical work-up that you may need to determine your ailment or severity of your illness. It is very important that you follow-up as instructed with your Primary care provider or Specialist for additional evaluation and to discuss your medical treatment plan. You may return to the Emergency Department should you have concerns or if your condition changes or worsens in any way. 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
--- NOTE | 2023-07-27 02:37 | XRR_ITS ---
PROCEDURE INFORMATION: Exam: XR Chest Exam date and time: 07/27/2023 2:48 AM Age: 53 years old Clinical indication: Shortness of breath; Prior surgery; Surgery date: 1-6 months; Surgery type: Stent places April 26, ex smoker, cough as of yesterday; Additional info: Dyspnea TECHNIQUE: Imaging protocol: Radiologic exam of the chest. Views: 1 view. COMPARISON: CR (CHEST, ) 04/26/2023 2:34 AM FINDINGS: Lungs: Bilateral patchy interstitial areas of accentuation which may reflect chronic thickening and perihilar areas suggesting bronchiectasis. More focal retrocardiac left lower lung area of atelectasis versus pneumonitis. Pleural spaces: Unremarkable. No pleural effusion. No pneumothorax. Heart/Mediastinum: Cardiomegaly. Accentuation of the heart size. Bones/joints: Unremarkable. XR/XR chest 1V portable [id number] IMPRESSION: 1. Accentuation of the cardiac silhouette. 2. Patchy areas of interstitial thickening which may be on a chronic basis. 3. More focal retrocardiac left lower lung atelectasis versus area of pneumonitis. No dense consolidation.
[2023-07-27 03:18] LABS: INR 0.93 (0.8-1.2)
[2023-07-27 03:21] LABS: Basophils % 0.4 %; Eosinophils # 0.3 10^3/uL (0.0-0.8); Eosinophils % 2.9 %; Hematocrit 36.8 % (37-53); Lymphocytes # 1.1 10^3/uL (0.8-4.8); Lymphocytes % 11.1 %; Mean Corpuscular HGB Conc 32.1 g/dL (30-55); Mean Corpuscular Hemoglobin 30.5 pg (27-33); Mean Corpuscular Volume 95.1 fl (82-101); Mean Platelet Volume 10.5 fL (7.4-10.4); Monocytes # 0.7 10^3/uL (0.2-0.9); Monocytes % 7.2 %; Neutrophils # 7.57 10^3/uL (1.8-7.7); Nucleated Red Blood Cells % 0 %; Platelet Count 170 10^3/cmm (157-399); Red Blood Count 3.87 10^6/uL (3.85-5.65); White Blood Count 9.71 10^3/uL (3.29-11.43)
[2023-07-27 03:29] LABS: Troponin(5th) Baseline 17 ng/L (0-15)
[2023-07-27 03:36] LABS: Alanine Aminotransferase 34 U/L (0-41); Albumin Level 4.2 g/dL (3.5-5.2); Alkaline Phosphatase 78 U/L (40-130); Anion Gap 14.5 (5-19); Aspartate Amino Transferase 20 U/L (0-40); Blood Urea Nitrogen 12 mg/dL (6-20); Calcium 9.1 mg/dL (8.5-10.5); Carbon Dioxide 25 mmol/L (22-29); Chloride 104 mmol/L (98-107); Globulin 2.5 g/dL (1.3-4.6); Glomerular Filtration Rate 101.1 mL/min (90-130); Glucose 112 mg/dL (65-115); NT Pro B Type Natriuretic Pept 1040 pg/mL (0-125); Osmolality Calculated 289 mOsm/kg (285-295); Potassium 4.5 mmol/L (3.5-5.1); Sodium 139 mmol/L (136-145); Total Bilirubin 0.4 mg/dL (0.15-1.2); Total Protein 6.7 g/dL (6.6-8.7)
[2023-07-27 05:37] LABS: Troponin 5 2HR 14.87 ng/L (0-15)
[2023-07-27 05:38] LABS: Troponin 5 2HR Delta -2.13 ABS# (0-10)
[2023-07-27] MEDS: FUROsemide 10 mg/mL SDV 4mL 40 MG IVP (06:02)
== END 2023-07-27 06:10 | disposition home or self-care (01) ==
PROVIDERS: Emergency Provider Internal Medicine
DX: I50.9 Heart failure, unspecified (principal); R06.00 Dyspnea, unspecified; J98.4 Other disorders of lung; Z79.02 Long term (current) use of antithrombotics/antiplatelets; Z79.82 Long term (current) use of aspirin; R06.02 Shortness of breath; I25.2 Old myocardial infarction; I25.10 Atherosclerotic heart disease of native coronary artery without angina pectoris
CPT/HCPCS: 71045; 80053; 83880; 84484; 85025; 85610; 93005; 96374; 99285; J1940

== ENCOUNTER 2023-08-20 08:54 | Outpatient (CLI) | payer BC, MEDICAID, SELFPAY ==
--- NOTE | 2023-08-20 09:00 | NMCV_ITS ---
NM chelsie perf SPECT r/s* [id number] Mukesh Navas Age: 53 Gender: M : 1970 Exam Date: 08/20/2023 09:00 Ordering Phys: Angela Jewell MD ([email or web address]) Technologist: MALLORY Nugent Exam Location: [facility] Indications: ATHEROSCLEROTIC HEART DISEASE, SYSTOLIC CONGESTIVE HEART FAILURE STRESS TEST Please see separate stress test report in [facility] for full findings IMAGE PROTOCOL Rest/Stress 1 Lexiscan Day Radiopharmaceutical Dose (mCi) Administration Site Administered by Rest: Tc-99m 10.5 IV MALLORY Becerra Sestamibi Stress:Tc-99m 32.7 IV MALLORY Becerra Sestamibi Rest: 20-Aug-2023 60 Discovery 630 Stress: 20-Aug-2023 30 Discovery 630 0.4mg Lexiscan. Images obtained in supine and prone position. SPECT RESULTS Technical Quality: Excellent Raw Data Analysis: Normal Image Corrections: No attenuation or motion correction applied Summed Stress Score: 28 Summed Rest Score: 23 Summed Difference Score: 5 PERFUSION FINDINGS Large sized areas of fixed perfusion defect is seen in apical lateral wall. This is consistent with large sized area of prior infarct in the left circumflex artery territory. Large sized area of partially reversible perfusion defect seen in apical, apical anterior and apical septal wall. This is consistent with large area of prior infarct with minimal mary-infarct ischemia seen in LAD territory. Large sized area of partially reversible perfusion defect is noted in inferior wall. This is consistent with large sized area of prior infarct with significant mary-infarct ischemia in RCA territory. FUNCTIONAL RESULTS (calculated via Gated SPECT) Stress Image LV EF (%): 35 Stress EDV (mL):271 TID: 1.01 Stress ESV (mL):175 FUNCTIONAL FINDINGS: LV systolic function is moderate to severely reduced with EF of 35%. IMPRESSIONS 1. Abnormal myocardial perfusion imaging with large sized area of prior infarct with significant mary-infarct ischemia in RCA territory. 2. Large sized area of prior infarct is seen in left circumflex artery territory. No significant ischemia seen 3. Large sized area prior infarct with minimal mary-infarct ischemia seen in LAD territory. 4. LV systolic function is moderate to severely reduced with EF of 35% Omar Bridges MD (Electronically Signed) Final Date: 21 August 2023 10:55 S
--- NOTE | 2023-08-20 09:00 | ECG_ITS ---
[facility] Test Date: 2023-08-20 Pat Name: Mukesh Navas Department: Room: Gender: Male Community [facility] Program Coordinator: : 1970 Requested By: Angela Jewell Order Number: [id number] Silvano MD: Omar Bridges M.D. Interpretive Statements NAME OF STUDY: LEXISCAN SESTAMIBI STRESS TEST INDICATION: [CAD, ] Procedure: At the baseline, the blood pressure was 99/69 mmHg with a heart rate of 59 bpm. The electrocardiogram showed sinus bradycardia, right axis deviation with normal ST and T's. Q waves seen in inferior and anterior/anterolateral leads. The Lexiscan was infused over a period of 20 seconds. A total of 0.4 mg of Lexiscan was infused. The stress phase was continued for a total of 5 minutes. Heart rate was at the end of stress phase was 67 bpm and a blood pressure of 97/65 mmHg. The EKG at the peak infusion revealed normal sinus rhythm with no significant ST-T wave changes. Sestamibi was injected 20 seconds after the Lexiscan infusion. Blood pressure at the end of recovery phase was 106/66 mmHg with a heart rate of 64 bpm. Conclusion: 1. Normal EKG response to Lexiscan infusion 2. No Lexiscan induced chest pain or cardiac arrhythmia. 3. Normal blood pressure and heart rate response. 4. Sestamibi/sestamibi perfusion scan pending; see separate report. Electronically Signed On 09-12-2023 20:04:18 GEOTHERMAL INSTALLER by Omar Bridges M.D. [email or web address]
[2023-08-20 09:15] VITALS: BMI 30.2
--- NOTE | 2023-08-20 09:22 | USCV_ITS ---
NavasMukesh Age: 53 Gender: M : 1970 Exam Date: 08/20/2023 09:28 Ordering Phys: Angela Jewell MD ([email or web address]) Technologist: Braden Beaver [place] [facility] [place]: hx mi BP: 130 / 8 HR: Rhythm: Sinus Technical Quality: Adequate MEASUREMENTS (Male / Female) Normal Values 2D ECHO LV Diastolic Diameter PLAX 5.7 cm 4.2 - 5.9 / 3.9 - 5.3 cm LV Systolic Diameter PLAX 4.4 cm IVS Diastolic Thickness 0.8 cm 0.6 - 1.0 / 0.6 - 0.9 cm IVS Systolic Thickness 1.8 cm LVPW Diastolic Thickness 1.3 cm 0.6 - 1.0 / 0.6 - 0.9 cm LVPW Systolic Thickness 1.8 cm LVOT Diameter 2.1 cm LV Ejection Fraction 2D Teich 44.4 % LV Ejection Fraction MOD 2C 56.7 % LV Ejection Fraction 2C AL 57.6 % LA Diameter 3.7 cm IVC Diameter 1.9 cm M-MODE Aortic Annulus Diameter 3.6 cm LA Ao Ratio MM 1.1 MV E Point Septal Separation 2.0 cm FINDINGS Left Ventricle Right Ventricle Right Atrium Left Atrium Mitral Valve Aortic Valve Tricuspid Valve Pulmonic Valve Pericardium Aorta IVC CONCLUSIONS This is a limited echocardiogram performed to assess LV systolic function. LV systolic function is mildly reduced with EF of 45 to 50%. Moderate hypokinesis of apical wall is seen. Compared to prior echocardiogram from 04/27/2023, LV systolic function has improved signifcantly. Omar Bridges MD (Electronically Signed) Final Date: 27 August 2023 11:11 S
[2023-08-20] MEDS: regadenoson 0.4 Mg/5 ml Syringe IVP (10:25)
[2023-08-20 10:47] VITALS: BP 106/66; PULSE 66
== END 2023-08-20 08:55 | disposition home or self-care (01) ==
LOC: CDL 08:55
PROVIDERS: Visit Provider Internal Medicine Cardiovascular Disease
DX: I25.10 Atherosclerotic heart disease of native coronary artery without angina pectoris (principal); I50.20 Unspecified systolic (congestive) heart failure; I25.2 Old myocardial infarction; R93.1 Abnormal findings on diagnostic imaging of heart and coronary circulation
CPT/HCPCS: 36415; 78452; 93017; 93308; 96374; A9500; J2785

== ENCOUNTER 2023-10-18 05:58 | Outpatient (CLI) | payer BC, MEDICAID, SELFPAY ==
[2023-10-18] VITALS (30 sets, daily range): BP systolic 105–134; BP diastolic 72–88; PULSE 56–68; RESP 9–26; TEMP 36.6–36.8; O2SAT 97–98; BMI 30.8
--- NOTE | 2023-10-18 06:00 | XACV_ITS ---
Exam Room: 2 Ht: 188 cm Wt: 109 kg BSA: 2.41 m2 Gender: Male : 1970 Any Known Allergies: No known allergies Exam Priority: Routine Procedure(s): Procedure Description: Diagnostic procedure Procedure Description: PCI procedure Procedure Description: Drug Eluting Coronary Stent Procedure Description: Miscellaneous Procedure Description: ACT Procedure Description: Coronary Angiography Diagnostic Cath Status: Elective Diagnostic Findings * INDICATION: 53-year-old man with past medical history of ST elevation [place] when LAD had revascularization. Significant distal RCA stenosis. Plan was to perform stress test as outpatient. Stress test is abnormal. It shows significant mary-infarct ischemia in the RCA territory in addition to other abnormalities. Plan for coronary angiogram with PCI of RCA. LV systolic function on recent echocardiogram has improved from baseline. * Proximal vessel has patent prior stent. Mid Left Anterior Descending: mild to moderate 40% stenosis, CEM: 3 flow. * Left Main has no significant disease. * Circumflex has no significant disease. * Distal RCA has significant 70% stenosis. * Coronary angiography shows right dominance. PCI Status: Elective PCI Indication: Staged PCI Interventional Findings * Procedure detail: We engaged RCA with JR4 guide catheter. IV heparin was administered to maintain anticoagulation. 0.014 run-through guidewire was used to cross the stenosis. We then placed 2.75 x 18 mm resolute Barry drug-eluting stent. At this time final angiogram was performed that showed excellent stent expansion and no residual stenosis and CEM-3 flow. Guidewire and guide catheter were removed. 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 Conclusions 1. Severe distal RCA stenosis s/p PCI with 1 stent. Patent prior LAD stent.. 2. Distal Right Coronary Artery was treated with a Drug Eluting Stent. Recommendations * Dual antiplatelet therapy with aspirin and plavix for at least 1 year. * High intensity statin therapy. * Outpatient cardiology follow up in 2 weeks. Interventional RX Recommendation: PCI w/o planned CABG Diagnostic RX Recommendation: PCI w/o planned CABG Anticoagulation: Heparin Pressures Phase:Rest AO : 106 / 76 ( 90 ) @ 7:48:00 AM 113 / 81 ( 97 ) @ 7:55:00 AM 104 / 75 ( 89 ) @ 8:00:00 AM Clinical Evaluation EBL: 5mL-10mL Procedural Details Procedure Consent Obtained. Pre-Procedure Time Out. Identified patient by full name and date of as verbalized by the patient/guarantor. Does the consent match the physician's order: Yes. Accurate & Complete Informed Consent: Yes. Inpatient/Outpatient History & Physical on Chart: Yes. If H&P is completed, is and addenduem needed: No. Visualize and Verify Site with Patient/Guarantor: N/A. Relevant Radiology Images available: Yes. The risks, benefits, and alternatives of sedation and/or procedure were discussed by physician. The patient agrees to continue. Procedure started. [facility] Clinical Fraility Score: 3: Managing Well. Flight Test Mechanic Indications: Stable Known CAD. Chest Pain Symptom Assessment: Typical Angina Symptoms. Cardiovascular Instability: No. Correct patient, site and procedure confirmed by cath team. PERRLA. Strong, equal hand diabetes physician bilaterally. Lungs clear x 5 lobes. IV Site on Arrival: 20 gauge in the left anticubital. IV Fluids: 0.9% NaCl at KVO. 0 mL infused prior to laborer gold leaf. Pre Procedural Pulses: bilateral dorsalis pedis was 3+. Pre Procedural Pulses: bilateral posterior tibial was 3+. Pre Procedural Pulses: bilateral radial was 3+. Oxygen started at 2liters/min via nasal canula. right groin was prepped with chloroprep then draped in the usual sterile fashion. right radial was prepped with chloroprep then draped in the usual sterile fashion. Physician notified. Patient's family in the photographic laboratory technician waitin groom. Dr. Bridges will update at the completion of the procedure. Equipment: 6F - Radial. Cardiac Cath Pack. Heparinized Saline (2 units/mL), 1000 mL bag. [employer] Manifold Kit Model BT 2000. Physician arrived. Baseline sample Acquired. HR: 59 BPM. Physician scrubbed in. Immediate Pre-Procedure Time Out. Correct Patient: Yes; Correct Procedure: Yes; Correct Site: Yes; Correct Patient Position: Yes; Correct Supplies: Yes; Dried Flammable Prep: Yes; Blood Products Available: N/A;. Lidocaine 1% infiltrated to the right radial. Arterial access obtained. A 5 wallisian TIG catheter in over the exchange J wire. Multiple views taken of left coronary artery. 6 wallisian JR 4 guide catheter was inserted over the wire. Multiple views taken of right coronary artery. Add inventory: endoflator, Runthrough guidewire, co-photogrammetry airplane pilot. Runthrough guidewire was advanced through the guide catheter to lesion in the distal RCA. Inflation Number : 1 A GABRIELLE Noble BARRY 2.75X18 SEGUNDO -Lot Number# [id number] was prepped and advanced across the Dist RCA. The stent was deployed at 12 KELLEN for 0:15 seconds. EXP . Stent balloon out over wire. Results checked. Wire out. ACT drawn. Results 370 seconds. Therapeutic limits - pre-heparin administration 90-150 seconds and monitoring heparin during a vascular procedure >250 seconds. Guide catheter out over the exchange J wire. Physician scrubbed out. A TR Band was successful obtaining hemostatsis at the Right Radial artery insertion site. Post Procedure: Pulses reassessed and unchanged. PERRLA. Strong, equal hand diabetes physician bilaterally. No VTE prophylaxis required. Medication's Wasted: Nitro = 49.8 mg. Medication's Wasted: Heparin = 1000 Units. Total IV fluids: 30 mL. PCI Indication: CAD (without ischemic symptoms). Post-op diagnosis: S/P PCI of the distal RCA. Complications: none. Estimated blood loss: 5mL-10mL. Responsiveness - Normal response to verbal stimuli; alert and oriented, PERRLA. Airway - Unaffected, no intervention required; spontaneous ventilation. Circulation: W/N/L, pulses unchanged. Nausea/Vomiting: No. Medication's Wasted: Other = Fentanyl 25 mcg. Procedure completed. Patient transferred by wheelchair to CPRU. Vital chart was stopped. Access Site Site: Right Radial artery Sheath Size: 6 Fr Hemostasis Method: TR Band Hemostasis Success: Successful Procedure Medications Start: 7:42 AM Stop: 7:42 AM Medication: Versed Amount: 1 mg Route: I.V. Start: 7:42 AM Stop: 7:42 AM Medication: Fentanyl Amount: 25 mcg Route: I.V. Start: 7:46 AM Stop: 7:46 AM Medication: Nitrogylcerin Amount: 200 mcg Route: I.A. Start: 7:48 AM Stop: 7:48 AM Medication: Heparin Amount: 5000 units Route: I.V. Start: 7:49 AM Stop: 7:49 AM Medication: Versed Amount: 1 mg Route: I.V. Start: 7:50 AM Stop: 7:50 AM Medication: Fentanyl Amount: 25 mcg Route: I.V. Start: 7:56 AM Stop: 7:56 AM Medication: Heparin Amount: 5000 units Route: I.V. Start: 7:57 AM Stop: 7:57 AM Medication: Fentanyl Amount: 25 mcg Route: I.V. Start: 8:08 AM Stop: 8:08 AM Medication: Plavix Amount: 300 mg Route: P.O. I, the attending physician, have reviewed and verified all procedure medications. Yes, all medications given per verbal order History/Risk Factors Hypertension: Yes Dyslipidemia: Yes Peripheral Arterial Disease (PAD): No Myocardial Infarction (KS): Yes Obesity: Yes Renal Disease: No Tobacco Use: Current/Recent(w/in 1 year) Prior Interventions PCI: Yes CABG: No Valve Surgery: No Date of PCI: 04/26/2023 Report Signatures Finalized by Omar Bridges MD on 10/18/2023 08:38 AM
[2023-10-18] MEDS: diphenhydrAMINE 50 mg Capsule PO (06:15)
[2023-10-18 06:23] LABS: Basophils % 0.5 %; Eosinophils # 0.5 10^3/uL (0.0-0.8); Eosinophils % 6.4 %; Hematocrit 39.4 % (37-53); Lymphocytes # 2.1 10^3/uL (0.8-4.8); Lymphocytes % 29.1 %; Mean Corpuscular Hemoglobin 29.8 pg (27-33); Mean Corpuscular Volume 90.4 fl (82-101); Mean Platelet Volume 10.3 fL (7.4-10.4); Monocytes # 0.7 10^3/uL (0.2-0.9); Monocytes % 8.9 %; Neutrophils # 4.01 10^3/uL (1.8-7.7); Nucleated Red Blood Cells % 0 %; Platelet Count 181 10^3/cmm (157-399); Red Blood Count 4.36 10^6/uL (3.85-5.65); Red Cell Distribution Width 13.7 % (12.1-15.1); White Blood Count 7.31 10^3/uL (3.29-11.43)
[2023-10-18 06:43] LABS: Anion Gap 12.2 (5-19); Blood Urea Nitrogen 14 mg/dL (6-20); Carbon Dioxide 27 mmol/L (22-29); Chloride 102 mmol/L (98-107); Creatinine Clr Calc Pharmacy 124.6796; Glomerular Filtration Rate 88.3 mL/min (90-130); Glucose 106 mg/dL (65-115); Osmolality Calculated 285 mOsm/kg (285-295); Potassium 4.2 mmol/L (3.5-5.1); Sodium 137 mmol/L (136-145)
--- NOTE | 2023-10-18 07:39 | W.PM.OPSFHP ---
Same Day Surgery H&P Indication for Procedure/HPI DATE OF PROCEDURE: October 18, 2023 CHIEF COMPLAINT/INDICATIONFOR SURGICAL PROCEDURE: Abnormal stress test/Dyspnea on exertion PREOP DIAGNOSIS: Abnormal stress test/Dyspnea on exertion PLANNED PROCEDURE: Operation Date: 10/18/23 07:00 Proposed Procedures p [facility] [id number] R94.39, I25.5(Left) - Omar Bridges M.D PCI of RCA 53-year-old man with past medical history of ST elevation [place] when LAD had revascularization. Significant distal RCA stenosis. Plan was to perform stress test as outpatient. Stress test is abnormal. It shows significant mary-infarct ischemia in the RCA territory. Plan for coronary angiogram with PCI of RCA. LV systolic function on recent echocardiogram has improved from baseline Medications/Allergies* Allergies/Adverse Reactions Allergy/AdvReac Type Severity Reaction Status Date / Time No Known Allergies Allergy Verified 07/26/23 16:04 Current Medications: Generic Name Dose Route Start Last Admin Trade Name Freq PRN Reason Stop Dose Admin Sodium Chloride 1,000 mls @ 50 mls/hr 10/18/23 06:00 10/18/23 06:32 Sodium Chloride 0.9% IV 10/19/23 01:59 Not Given .Q20H ONE Pertinent History/Comorbid Conditions* Medical History (Updated 08/04/23 @ 00:01 by WAYLON Heaton) Systolic CHF Coronary artery disease Ventricular tachycardia (paroxysmal) Cigarette nicotine dependence ST elevation (STEMI) myocardial infarction Pertinent Exam Findings alert, oriented x 3, clear to auscultation bilaterally and regular rate & rhythm Conscious Sedation Assessment PATIENT ASSESSED PRIOR TO SEDATION, WITH NO CHANGE NOTED: Yes AIRWAY EVAL/ANESTHESIA PLAN: normal airway, ASA III, Local Anesthesia, Risks, benefits & alternatives of sedation and/or procedure discussed and Patient agrees to continue as planned ADDITIONAL INFORMATION: Moderate sedation Recommendations Surgery/Procedure today (Left heart cath with possible percutaneous coronary intervention) Coding Level of Care Code Acute Code for Patsy Guevara
--- NOTE | 2023-10-18 16:27 | PM.SDS ---
Short Stay Summary Providers Date of Admit/Discharge: 10/18/23 Attending Provider: Omar Bridges M.D Chief Complaint: I25.5 HPI History of Present Illness 53-year-old man with past medical history of ST elevation [place] when LAD had revascularization. Significant distal RCA stenosis. Plan was to perform stress test as outpatient. Stress test is abnormal. It shows significant mary-infarct ischemia in the RCA territory. Plan for coronary angiogram with PCI of RCA. LV systolic function on recent echocardiogram has improved from baseline Review of Systems Const: Denies: fever(s) or chills Card: Reports: dyspnea on exertion; Denies: chest pain, palpitations, irregular heart rhythm, swelling of feet/ankles, lightheadedness, pre-syncope, orthopnea or leg pain with exertion Resp: Reports: dyspnea; Denies: productive cough or non-productive cough Musc: Denies: neck pain or back pain Neuro: Denies: headache(s) or dizziness Psych: Denies: anxiety, depression, suicidal ideation or homicidal ideation Matthew/Lymph: Denies: easy bruising or easy bleeding Home Meds/Allergies Home Medications and Allergies Allergies Allergy/AdvReac Type Severity Reaction Status Date / Time No Known Allergies Allergy Verified 07/26/23 16:04 PFSH Acute PFSH: Medical History Systolic CHF Coronary artery disease Ventricular tachycardia (paroxysmal) Cigarette nicotine dependence ST elevation (STEMI) myocardial infarction Vitals/I&O/Wt Last Vital Signs Temp 97.9 F 10/18/23 16:19 Pulse 68 10/18/23 16:19 Resp 18 10/18/23 16:19 BP 106/81 10/18/23 16:19 Pulse Ox 97 10/18/23 11:09 O2 Del Method Room Air 10/18/23 11:09 Weight last 48 hrs Weight 240 lb Physical Exam Narrative: GENERAL: Patient is alert, awake and oriented x3. [] NECK: No jugular vein distension. [] HEENT: No cyanosis. No icterus. No pallor. [] HEART: Regular S1 and S2. No murmur, rub or gallop. [] LUNGS: Clear to auscultate bilaterally. [] CENTRAL NERVOUS SYSTEM: Grossly nonfocal. [] EXTREMITIES: Lower extremities with 1+ edema bilaterally. Hospital Course Hospital Course Patient underwent coronary angiogram that confirmed significant distal RCA stenosis. He underwent successful revascularization with 1 stent. Procedure was performed from right radial artery access. He was observed throughout the day and in the evening was discharged home on dual antiplatelet therapy, statin and Coreg. 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 request for service Routin e Exams 10/18/23 06:00 Completed Procedures Performed: Coronary angiogram/ PCI of RCA Discharge Plan Discharge Patient Disposition: Home Prescriptions: No Action aspirin 81 mg tablet,delayed release (DR/EC) 81 mg PO DAILY Qty: 90 3RF atorvastatin 40 mg tablet 40 mg PO DAILY Qty: 90 3RF carvedilol [Coreg] 3.125 mg tablet 3.125 mg PO BID Qty: 180 3RF Rx Instructions: must administer with a meal/food clopidogrel [Plavix] 75 mg tablet 75 mg PO DAILY Qty: 90 3RF Discharge Orders: Discharge Order (Routine); Ordered 10/18/23 Ordered By: Omar Bridges Referrals: Radha Mendoza FNP [Nurse Practitioner] - 10/18/23 2:00 pm Patient Instructions: Heart Failure (DC), Coronary Artery Disease (DC), Coronary Angioplasty (DC), Post Angiogram Home Care Instructions Discharge Date/Time: 10/18/23 16:52 Attestations Medical Necessity Statement*: Care not expected to cross 2 midnights. Time Spent in Patient Care*: less than 30 min Quality Metrics Clinical Quality Measures: [ No reported AMI, CVA or VTE this stay] Coding Level of Care Code Acute Code for Adam Fwnurys
== END 2023-10-18 16:52 | disposition home or self-care (01) ==
LOC: CCL 05:59 → CSU 09:21
PROVIDERS: Visit Provider Internal Medicine
DX: I25.10 Atherosclerotic heart disease of native coronary artery without angina pectoris (principal); I10 Essential (primary) hypertension; E78.5 Hyperlipidemia, unspecified; E66.9 Obesity, unspecified; Z68.30 Body mass index [BMI] 30.0-30.9, adult; I50.20 Unspecified systolic (congestive) heart failure; F17.210 Nicotine dependence, cigarettes, uncomplicated; I25.2 Old myocardial infarction
CPT/HCPCS: 36415; 80048; 85025; 85347; 93454; 96361; 96365; 99152; 99153; C1769; C1874; C1887; C1894; C9600; J1644; J2250; J3010; J3490; J7030; Q0163; Q9967

== ENCOUNTER → 2023-12-08 09:18 | Outpatient (BNVA) | payer BC, MEDICAID, SELFPAY | PROVIDERS: Visit Provider Nurse Practitioner Family | DX: I25.10 Atherosclerotic heart disease of native coronary artery without angina pectoris (principal) | CPT/HCPCS: 36415; 80048 ==